=== PATIENT | male | born 1940 | race Two or more races ===

== ENCOUNTER 2017-06-24 10:00 | Outpatient (CLI) | payer MEDICARE, BC | END 2017-06-24 23:59 | disposition home or self-care (01) | LOC: WOU 10:00 | PROVIDERS: ATTEND Podiatrist Foot & Ankle Surgery | DX: I83.023 Varicose veins of left lower extremity with ulcer of ankle (principal); L97.322 Non-pressure chronic ulcer of left ankle with fat layer exposed; I83.892 Varicose veins of left lower extremity with other complications; I10 Essential (primary) hypertension; Z87.891 Personal history of nicotine dependence | CPT/HCPCS: 11042; A6402 ==

== ENCOUNTER 2017-07-01 09:30 | Outpatient (CLI) | payer MEDICARE, BC | END 2017-07-01 23:59 | disposition home or self-care (01) | LOC: WOU 09:30 | PROVIDERS: ATTEND Podiatrist Foot & Ankle Surgery | DX: I83.023 Varicose veins of left lower extremity with ulcer of ankle (principal); L97.322 Non-pressure chronic ulcer of left ankle with fat layer exposed; I83.892 Varicose veins of left lower extremity with other complications; I10 Essential (primary) hypertension; Z95.5 Presence of coronary angioplasty implant and graft; Z98.62 Peripheral vascular angioplasty status; Z87.891 Personal history of nicotine dependence; Z79.82 Long term (current) use of aspirin; Z79.899 Other long term (current) drug therapy | CPT/HCPCS: 11042; A6402 ==

== ENCOUNTER 2017-07-15 09:02 | Outpatient (CLI) | payer MEDICARE, BC | END 2017-07-15 23:59 | disposition home or self-care (01) | LOC: WOU 09:02 | PROVIDERS: ATTEND Podiatrist Foot & Ankle Surgery | DX: I83.023 Varicose veins of left lower extremity with ulcer of ankle (principal); L97.322 Non-pressure chronic ulcer of left ankle with fat layer exposed; I83.892 Varicose veins of left lower extremity with other complications; Z87.891 Personal history of nicotine dependence; I70.203 Unspecified atherosclerosis of native arteries of extremities, bilateral legs; Z95.5 Presence of coronary angioplasty implant and graft; Z79.82 Long term (current) use of aspirin; Z79.899 Other long term (current) drug therapy | CPT/HCPCS: 11042; A6402 ==

== ENCOUNTER 2017-08-05 09:05 | Outpatient (CLI) | payer MEDICARE, BC | END 2017-08-05 23:59 | disposition home or self-care (01) | LOC: WOU 09:05 | PROVIDERS: ATTEND Podiatrist Foot & Ankle Surgery | DX: I83.023 Varicose veins of left lower extremity with ulcer of ankle (principal); L97.322 Non-pressure chronic ulcer of left ankle with fat layer exposed; I83.892 Varicose veins of left lower extremity with other complications; M79.662 Pain in left lower leg; Z95.5 Presence of coronary angioplasty implant and graft; I65.23 Occlusion and stenosis of bilateral carotid arteries; Z87.891 Personal history of nicotine dependence; Z79.82 Long term (current) use of aspirin | CPT/HCPCS: 15271; A6402 ==

== ENCOUNTER 2017-08-12 09:09 | Outpatient (CLI) | payer MEDICARE, BC | END 2017-08-12 23:59 | disposition home or self-care (01) | LOC: WOU 09:09 | PROVIDERS: ATTEND Podiatrist Foot & Ankle Surgery | DX: I83.023 Varicose veins of left lower extremity with ulcer of ankle (principal); L97.322 Non-pressure chronic ulcer of left ankle with fat layer exposed; Z95.5 Presence of coronary angioplasty implant and graft; I70.202 Unspecified atherosclerosis of native arteries of extremities, left leg; Z87.891 Personal history of nicotine dependence; I10 Essential (primary) hypertension; I83.892 Varicose veins of left lower extremity with other complications | CPT/HCPCS: 15271; A6402 ==

== ENCOUNTER 2017-08-19 09:01 | Outpatient (CLI) | payer MEDICARE, BC | END 2017-08-19 23:59 | disposition home or self-care (01) | LOC: WOU 09:01 | PROVIDERS: ATTEND Podiatrist Foot & Ankle Surgery | DX: I83.023 Varicose veins of left lower extremity with ulcer of ankle (principal); L97.322 Non-pressure chronic ulcer of left ankle with fat layer exposed; Z95.5 Presence of coronary angioplasty implant and graft; I70.202 Unspecified atherosclerosis of native arteries of extremities, left leg; I10 Essential (primary) hypertension; R60.0 Localized edema; Z87.891 Personal history of nicotine dependence | CPT/HCPCS: 15271; A6402; J3490; Q4131 ==

== ENCOUNTER 2017-08-26 09:05 | Outpatient (CLI) | payer MEDICARE, BC | END 2017-08-26 23:59 | disposition home or self-care (01) | LOC: WOU 09:05 | PROVIDERS: ATTEND Podiatrist Foot & Ankle Surgery | DX: I83.023 Varicose veins of left lower extremity with ulcer of ankle (principal); L97.322 Non-pressure chronic ulcer of left ankle with fat layer exposed; Z87.891 Personal history of nicotine dependence; I10 Essential (primary) hypertension; I83.892 Varicose veins of left lower extremity with other complications | CPT/HCPCS: A6402; G0463 ==

== ENCOUNTER 2017-08-27 09:35 | Outpatient (CLI) | payer MEDICARE, BC ==
[2017-08-27 09:57] LABS: BASOPHILS % (AUTO) 0.6 % (0.0-2.0); EOSINOPHILS % (AUTO) 2.4 % (0.0-6.0); HEMATOCRIT 44 % (39-51); HEMOGLOBIN 14.8 g/dL (13.5-17.5); LYMPHOCYTES # (AUTO) 1.8 /CMM (0.8-4.8); LYMPHOCYTES % (AUTO) 24.2 % (20.0-44.0); MEAN CORPUSCULAR HGB CONC 34 g/dl (31.0-36.0); MEAN CORPUSCULAR VOLUME 98 fL (80-96); MONOCYTES # (AUTO) 0.6 /CMM (0.1-1.30); MONOCYTES % (AUTO) 8.5 % (2.0-12.0); NEUTROPHILS # (AUTO) 4.6 /CMM (1.8-8.9); NEUTROPHILS % (AUTO) 64.3 % (43.0-81.0); PLATELET COUNT (AUTO) 181 /CMM (150-450); RDW COEFFICIENT OF VARIATION 13.7 (11.5-15.0); RED BLOOD CELL COUNT(AUTO) 4.44 MIL/uL (4.5-6.0); WHITE BLOOD COUNT (AUTO) 7.2 K/uL (4.3-11.0)
[2017-08-27 11:43] LABS: CALCIUM, SERUM 9.5 mg/dL (8.5-10.1); CHLORIDE 104 mmol/L (98-107); CREATININE 1.1 mg/dL (0.6-1.3); GLUCOSE 121 mg/dL (74-106); POTASSIUM 4.6 mmol/L (3.5-5.1); SODIUM SERUM 141 mmol/L (136-145); UREA NITROGEN, BLOOD 26 mg/dL (7-18)
[2017-08-27 11:47] LABS: CARBON DIOXIDE 28 mmol/L (21-32)
[2017-08-27 12:06] LABS: INR 0.95 (0.87-1.13)
== END 2017-08-27 23:59 | disposition home or self-care (01) ==
LOC: LAB 09:35
PROVIDERS: ATTEND Podiatrist Foot & Ankle Surgery
DX: Z01.818 Encounter for other preprocedural examination (principal); I87.312 Chronic venous hypertension (idiopathic) with ulcer of left lower extremity; R94.31 Abnormal electrocardiogram [ECG] [EKG]; I51.7 Cardiomegaly; I70.0 Atherosclerosis of aorta; M47.894 Other spondylosis, thoracic region; M51.04 Intervertebral disc disorders with myelopathy, thoracic region
CPT/HCPCS: 36415; 71046; 80048-TC; 85025-TC; 85610-TC; 85730-TC

== ENCOUNTER 2017-09-05 05:24 | Day surgery (SDC) | payer MEDICARE, BC ==
[2017-09-05] MEDS ORDERED: ANESTHESIA TRAY IN PYXIS 1 EA TRAY MC ONE (06:51)
[2017-09-05] MEDS ORDERED: LIDOCAINE 1% INJ 50 ML MDV IJ ONE (07:15)
[2017-09-05] MEDS ORDERED: LIDOCAINE 1%-EPI 1:100,000 20 ML VIAL ONE (07:15)
[2017-09-05] MEDS ORDERED: BUPIVACAINE 0.25% 75 MG/30 ML VIAL ONE (07:16)
[2017-09-05] MEDS ORDERED: MIDAZOLAM HCL 2 MG/2ML VIAL ONE (07:21)
[2017-09-05] MEDS ORDERED: FENTANYL PF 100MCG/2ML AMPUL ONE (07:22)
== END 2017-09-05 09:30 | disposition home or self-care (01) ==
LOC: DS 05:24
PROVIDERS: ATTEND Podiatrist Foot & Ankle Surgery
DX: I83.028 Varicose veins of left lower extremity with ulcer other part of lower leg (principal); E78.5 Hyperlipidemia, unspecified; I10 Essential (primary) hypertension; I25.10 Atherosclerotic heart disease of native coronary artery without angina pectoris; Z95.5 Presence of coronary angioplasty implant and graft; Z98.49 Cataract extraction status, unspecified eye; Z87.891 Personal history of nicotine dependence; Z79.82 Long term (current) use of aspirin; Z79.899 Other long term (current) drug therapy
CPT/HCPCS: A6402; J0690; J2250; J3010; J3490; J7120; Z7610

== ENCOUNTER 2017-09-09 08:40 | Outpatient (CLI) | payer MEDICARE, BC | END 2017-09-09 23:59 | disposition home or self-care (01) | LOC: WOU 08:40 | PROVIDERS: ATTEND Podiatrist Foot & Ankle Surgery | DX: I83.023 Varicose veins of left lower extremity with ulcer of ankle (principal); L97.325 Non-pressure chronic ulcer of left ankle with muscle involvement without evidence of necrosis; I83.892 Varicose veins of left lower extremity with other complications; I10 Essential (primary) hypertension; Z87.891 Personal history of nicotine dependence | CPT/HCPCS: 15271; A6402 ==

== ENCOUNTER 2017-09-16 09:20 | Outpatient (CLI) | payer MEDICARE, BC | END 2017-09-16 23:59 | disposition home or self-care (01) | LOC: WOU 09:20 | PROVIDERS: ATTEND Podiatrist Foot & Ankle Surgery | DX: I83.023 Varicose veins of left lower extremity with ulcer of ankle (principal); L97.322 Non-pressure chronic ulcer of left ankle with fat layer exposed; Z87.891 Personal history of nicotine dependence; I10 Essential (primary) hypertension; Z95.5 Presence of coronary angioplasty implant and graft; I83.892 Varicose veins of left lower extremity with other complications; Z79.82 Long term (current) use of aspirin; Z79.899 Other long term (current) drug therapy | CPT/HCPCS: 15271; A6402 ×2; J3490; J7040; Q4131 ==

== ENCOUNTER 2017-09-24 11:00 | Outpatient (CLI) | payer MEDICARE, BC | END 2017-09-24 23:59 | disposition home or self-care (01) | LOC: WOU 11:00 | PROVIDERS: ATTEND Podiatrist Foot & Ankle Surgery | DX: I83.023 Varicose veins of left lower extremity with ulcer of ankle (principal); L97.325 Non-pressure chronic ulcer of left ankle with muscle involvement without evidence of necrosis; I83.892 Varicose veins of left lower extremity with other complications; I10 Essential (primary) hypertension; I70.202 Unspecified atherosclerosis of native arteries of extremities, left leg; Z87.891 Personal history of nicotine dependence; Z95.5 Presence of coronary angioplasty implant and graft | CPT/HCPCS: 15271; A6402; J3490 ==

== ENCOUNTER 2017-09-30 13:56 | Outpatient (CLI) | payer MEDICARE, BC | END 2017-09-30 23:59 | disposition home or self-care (01) | LOC: WOU 13:56 | PROVIDERS: ATTEND Podiatrist Foot & Ankle Surgery | DX: I83.023 Varicose veins of left lower extremity with ulcer of ankle (principal); L97.325 Non-pressure chronic ulcer of left ankle with muscle involvement without evidence of necrosis; I83.892 Varicose veins of left lower extremity with other complications; I70.202 Unspecified atherosclerosis of native arteries of extremities, left leg; Z87.891 Personal history of nicotine dependence | CPT/HCPCS: A6402; G0463 ==

== ENCOUNTER 2017-10-07 11:15 | Outpatient (CLI) | payer MEDICARE, BC | END 2017-10-07 23:59 | disposition home or self-care (01) | LOC: WOU 11:15 | PROVIDERS: ATTEND Podiatrist Foot & Ankle Surgery | DX: I83.023 Varicose veins of left lower extremity with ulcer of ankle (principal); L97.325 Non-pressure chronic ulcer of left ankle with muscle involvement without evidence of necrosis; Z87.891 Personal history of nicotine dependence; I83.892 Varicose veins of left lower extremity with other complications; Z95.5 Presence of coronary angioplasty implant and graft; Z79.82 Long term (current) use of aspirin | CPT/HCPCS: 11043; A6402; J3490 ==

== ENCOUNTER 2017-10-14 10:58 | Outpatient (CLI) | payer MEDICARE, BC | END 2017-10-14 23:59 | disposition home or self-care (01) | LOC: WOU 10:58 | PROVIDERS: ATTEND Podiatrist Foot & Ankle Surgery | DX: I83.023 Varicose veins of left lower extremity with ulcer of ankle (principal); L97.325 Non-pressure chronic ulcer of left ankle with muscle involvement without evidence of necrosis; I83.891 Varicose veins of right lower extremity with other complications; I10 Essential (primary) hypertension; Z87.891 Personal history of nicotine dependence | CPT/HCPCS: A6402; G0463; Z7610 ==

== ENCOUNTER 2017-10-21 11:04 | Outpatient (CLI) | payer MEDICARE, BC | END 2017-10-21 23:59 | disposition home or self-care (01) | LOC: WOU 11:04 | PROVIDERS: ATTEND Podiatrist Foot & Ankle Surgery | DX: I83.023 Varicose veins of left lower extremity with ulcer of ankle (principal); L97.325 Non-pressure chronic ulcer of left ankle with muscle involvement without evidence of necrosis; I83.892 Varicose veins of left lower extremity with other complications; I10 Essential (primary) hypertension; Z79.82 Long term (current) use of aspirin | CPT/HCPCS: 11043; A6402; Z7610 ==